=== PATIENT | male | born 1980 | race Caucasian/White ===

== ENCOUNTER 2018-07-28 16:13 | Emergency (ER) | payer BC ==
[~2018-07-28] VITALS: Ht 180.3 cm; Wt 154.2 kg
[2018-07-28 16:14] VITALS: BP 131/72
[2018-07-28] MEDS ORDERED: VENTOLIN HFA18 GM INH (16:25)
[2018-07-28] MEDS ORDERED: MORPHINE SULFATE 10 MG/ML VIAL. IM ONE (16:30)
[2018-07-28] MEDS ORDERED: KETOROLAC 60 MG/2 ML INJ. IM ONE (16:30)
[2018-07-28] MEDS ORDERED: DEXAMETHASONE SOD PHOS 20 MG/5 ML VIAL. IM ONE (16:30)
[2018-07-28] MEDS ORDERED: diazePAM 5 MG TABLET PO ONE (16:30)
--- NOTE | 2018-07-28 16:36 | PHYS DOC ---
Adult General Chief Complaint Chief Complaint: BACK PAIN - NO INJURY HPI HPI Patient is a 38 year old male with no significant history other than morbidly obesity who presents today complaining of 10 out of 10 left low back pain radiating to the left lower extremity. Patient states the pain has been going on since Sunday. He states he was seen at [facility] emergency room on Sunday, he states they did x-rays which were negative. He states the pain has continued since then. Patient denies any injury. Denies any loss of bowel bladder function. Denies any generalized weakness. Review of Systems Review of Systems Constitutional: Denies fever or chills [] GI: Denies abdominal pain, nausea, vomiting, bloody stools or diarrhea [] : Denies dysuria or hematuria [] Musculoskeletal: Reports back pain and left lower rib radiating to the left lower extremity Integument: Denies rash or skin lesions [] Neurologic: Denies headache, focal weakness or sensory changes [] All other systems were reviewed and found to be within normal limits, except as documented in this note. Current Medications Current Medications Current Medications Medications (Trade) Dose Ordered Sig/[facility] Start Time Stop Time Status Last Admin Dose Admin Dexamethasone Sodium Phosphate (Decadron) 10 mg 1X ONCE 07/28/18 16:30 07/28/18 16:31 DC 07/28/18 16:49 10 MG Diazepam (Valium) 5 mg 1X ONCE 07/28/18 16:30 07/28/18 16:31 DC 07/28/18 16:49 5 MG Ketorolac Tromethamine (Toradol Im) 60 mg 1X ONCE 07/28/18 16:30 07/28/18 16:31 DC 07/28/18 16:46 60 MG Morphine Sulfate (Morphine Sulfate) 5 mg 1X ONCE 07/28/18 16:30 07/28/18 16:31 DC 07/28/18 16:47 5 MG Allergies Allergies Allergies Coded Allergies Type Severity Reaction Last Updated Verified cephalexin Allergy Intermediate Rash 07/28/18 Yes Physical Exam Physical Exam Constitutional: Well developed, well nourished, no acute distress, non-toxic appearance. [] Abdomen: Bowel sounds normal, soft, no tenderness, no masses, no pulsatile masses. [] Skin: Warm, dry, no erythema, no rash. [] Back: Morbidly obese patient. Diffuse paraspinal muscle tenderness the left lumbar spine worse on the left SI joint, no midline lumbar spine tenderness, no CVA tenderness. Positive left leg straight raises to the left lower extremity at approximately 30 Extremities: No tenderness, no cyanosis, no clubbing, ROM intact, no edema. [] Neurologic: Alert and oriented X 3, normal motor function, normal sensory function, no focal deficits noted. [] Psychologic: Affect normal, judgement normal, mood normal. [] Current Patient Data Vital Signs Vital Signs Date Time Temp Pulse Resp B/P (MAP) Pulse Ox O2 Delivery O2 Flow Rate FiO2 07/28/18 16:47 20 07/28/18 16:14 98.3 63 131/72 (91) 97 Room Air 98.3 EKG EKG [] Radiology/Procedures Radiology/Procedures [] Course & Med Decision Making Course & Med Decision Making Pertinent Labs and Imaging studies reviewed. (See chart for details) This is a 38-year-old male obese patient presenting to the ED today with left low back pain radiating to the left lower extremity consistent with sciatica. Patient is already on hydrocodone as needed for his pain. He has a prescription for Medrol Dosepak, he states his been taking the medications with no relief. Patient was given pain medicine in the emergency room. Gave patient a prescription for Valium and increased his hydrocodone dose. Encouraged him to continue taking the Medrol Dosepak and given prescription for diclofenac. Recommended he follows up with her primary care doctor. Weight loss also recommended. Dragon Disclaimer Dragon Disclaimer This electronic medical record was generated, in whole or in part, using a voice recognition dictation system. Departure Departure Impression: Primary Impression: Low back pain Additional Impression: Sciatica Disposition: 01 HOME, SELF-CARE Condition: STABLE Patient Instructions: Back Pain, Adult, Sciatica with Rehab-SportsMed Additional Instructions: You were evaluated in the emergency room for back pain with sciatica. We increased your hydrocodone dose. We also gave you a prescription for Valium and diclofenac. Take the medications as prescribed. Continue taking the Medrol Dosepak. Please follow-up with the primary care doctor as soon as you can. Consider weight loss. Scripts Diclofenac Sodium (VOLTAREN) 100 Gm Gel..gram. 1 GM TP QID, #100 GM 2 Refills Prov: JERRYVIVIAN SCADA ENGINEER 07/28/18 Diclofenac Sodium (DICLOFENAC SODIUM) 50 Mg Tablet. 1 TAB PO BID, #30 TAB 0 Refills Prov: VIVIAN EDWARDS APRN 07/28/18 Diazepam (VALIUM) 5 Mg Tablet 5 MG PO TID, #15 TAB Prov: VIVIAN EDWARDS APRN 07/28/18 Hydrocodone Bit/Acetaminophen (HYDROCODONE-APAP 7.5-325 ) 1 Each Tablet 1 TAB PO PRN Q6HRS PRN for PAIN, #12 TAB 0 Refills Prov: VIVIAN EDWARDS APRN 07/28/18 Problem Qualifiers Primary Impression: Low back pain Chronicity: acute Back pain laterality: left Sciatica presence: with sciatica Sciatica laterality: sciatica of left side Qualified Codes: M54.42 - Lumbago with sciatica, left side Additional Impression: Sciatica Laterality: left Qualified Codes: M54.32 - Sciatica, left side VIVIAN EDWARDS APRN Jul 28, 2018 16:36
[2018-07-28] MEDS ORDERED: HYDR-2762 PO (16:48)
[2018-07-28] MEDS ORDERED: DIAZ5TAB PO (16:48)
[2018-07-28] MEDS ORDERED: DICL100G18 TP (17:36)
[2018-07-28] MEDS ORDERED: DICL50TA4 PO (17:36)
== END 2018-07-28 17:42 | disposition home or self-care (01) ==
LOC: ER 16:13
DX: M54.42 Lumbago with sciatica, left side (principal); E66.01 Morbid (severe) obesity due to excess calories; Z68.42 Body mass index [BMI] 45.0-49.9, adult; Z88.1 Allergy status to other antibiotic agents
CPT/HCPCS: 96372; 99284; J1100; J1885; J2270

== ENCOUNTER 2018-07-30 13:23 | Emergency (ER) | payer BC ==
[~2018-07-30] VITALS: Ht 180.3 cm; Wt 154.2 kg
[~2018-07-30 13:23] MED LIST: DIAZ5TAB PO; DICL100G18 TP; DICL50TA4 PO; HYDR-2762 PO; VENTOLIN HFA18 GM INH
[2018-07-30 15:11] VITALS: BP 140/91
--- NOTE | 2018-07-30 15:34 | PHYS DOC ---
Past Medical History Past Medical History: Asthma Past Surgical History: No Surgical History Alcohol Use: Rarely Drug Use: None Adult General Chief Complaint Chief Complaint: LOWER EXT PAIN HPI HPI Patient is a 38 year old male with a history of obesity presents to the ED complaining of left low back pain radiating to left lower extremity 4 days ago. Patient states on Sunday he slept on the couch because he was sick and when he woke up on , he had pain going from his left lower back down his left leg. Describes the pain as sharp. Rates the pain as 10 out of 10. States he has been to 3 or 4 different emergency rooms and was told to come here by his PCP, Dr. Quijano. Patient states he has had negative x-rays of back, hip, and knee. Denies chest pain, shortness of breath, abdominal pain, bowel/bladder changes, saddle anesthesia, injury, weakness, dizziness, fever or inability to walk. Review of Systems Review of Systems Constitutional: Denies fever or chills [] Eyes: Denies change in visual acuity, redness, or eye pain [] HENT: Denies nasal congestion or sore throat [] Respiratory: Denies cough or shortness of breath [] Cardiovascular: No additional information not addressed in HPI [] GI: Denies abdominal pain, nausea, vomiting, bloody stools or diarrhea [] : Denies dysuria or hematuria [] Musculoskeletal: Complains of left leg pain. Denies back pain or joint pain [] Integument: Denies rash or skin lesions [] Neurologic: Denies headache, focal weakness or sensory changes [] All other systems were reviewed and found to be within normal limits, except as documented in this note. Allergies Allergies Allergies Coded Allergies Type Severity Reaction Last Updated Verified cephalexin Allergy Intermediate Rash 07/28/18 Yes Physical Exam Physical Exam Constitutional: Well developed, well nourished, no acute distress, non-toxic appearance. [] HENT: Normocephalic, atraumatic Skin: Warm, dry, no erythema, no rash. [] Back: No tenderness, no CVA tenderness. [] Extremities: No bony tenderness, Pain radiates down left leg in sciatic nerve distribution. positive straight leg raise. no cyanosis, no clubbing, ROM intact , no edema. [] Neurologic: Alert and oriented X 3, normal motor function, normal sensory function, no focal deficits noted. [] Psychologic: Affect normal, judgement normal, mood normal. [] Current Patient Data Vital Signs Vital Signs Date Time Temp Pulse Resp B/P (MAP) Pulse Ox O2 Delivery O2 Flow Rate FiO2 07/30/18 15:11 98.2 94 18 140/91 (107) 95 Room Air 98.2 EKG EKG [] Radiology/Procedures Radiology/Procedures [] Course & Med Decision Making Course & Med Decision Making Pertinent Labs and Imaging studies reviewed. (See chart for details) []Discussed with patient that we do not complete outpatient MRI's. No bony tenderness, injury, bowel/bladder changes or saddle anesthesia. Patient able to ambulate without assistance. Discussed follow-up with PCP for outpatient MRI. Patients pain controlled by medications he is taking outpatient. Had registration come in and talk with patient regarding insurance questions. Discussed the importance of follow-up and reasons to return to the ED. Patient understands and agrees with plan. Dragon Disclaimer Dragon Disclaimer This electronic medical record was generated, in whole or in part, using a voice recognition dictation system. Departure Departure Impression: Primary Impression: Sciatica Disposition: HOME, SELF-CARE Condition: STABLE Referrals: MARCUS QUIJANO PA-C (PCP) Patient Instructions: Sciatica AL CULVER Jul 30, 2018 15:34
== END 2018-07-30 15:52 | disposition home or self-care (01) ==
LOC: ER 13:23
DX: M54.42 Lumbago with sciatica, left side (principal); J45.909 Unspecified asthma, uncomplicated; E66.01 Morbid (severe) obesity due to excess calories; Z68.42 Body mass index [BMI] 45.0-49.9, adult; Z88.1 Allergy status to other antibiotic agents
CPT/HCPCS: 99281

== ENCOUNTER → 2018-07-31 | Outpatient (CLI) | payer BC ==
[2018-07-30 15:11] VITALS: BP 140/91
--- NOTE | 2018-07-31 13:40 | RAD ---
MRI Lumbar Spine without contrast History: Acute low back pain for one month, left-sided sciatica for 4 days Technique: Multiplanar, multi sequential noncontrast MR imaging was performed of the lumbar spine. Contrast: None Comparison: None Findings: There is mild motion. Most inferior fully formed intervertebral disc space is considered L5-S1. Lumbar vertebral body stature and AP alignment are maintained. There is relative straightening of the lumbar spine. There is mild degenerative disc disease L2-3 and L3-4, mild disc desiccation L5-S1 and L1-2. There is posterior annular tear L5-S1, anterior annular tears at L3-4 and L2-3. There is mild edema of the anterior, inferior corners of L3 and L2 to lesser degree of L1 probably reactive/degenerative in etiology. There is a hemangioma of the superior L3 vertebral body extending to the endplate. Conus terminates at the mid aspect of L2. There is mild lumbar levoscoliosis. L1-L2: Spinal canal and neural foramina are adequate. L2-L3: Spinal canal and neural foramina are adequate. L3-L4: Spinal canal and neural foramina are adequate. There is mild facet degenerative change. L4-L5: Spinal canal is adequate. There is minimal disc osteophyte complex in the inferior left neural foramen, minimal narrowing of the left neural foramen. Right neural foramen is adequate. L5-S1: There is minimal disc osteophyte complex in the inferior left neural foramen, very mild narrowing. Right neural foramen and spinal canal are adequate. Impression: 1. There is no lumbar spinal stenosis. There is mild degenerative disc disease greatest L2-3 and L3-4. There is minimal edema of the anterior, inferior corners of L1, L2, L3 likely reactive/degenerative in etiology. There is minimal narrowing of the left L4-5 and L5-S1 neural foramina by minimal disc osteophyte complexes. Electronically signed by: Remington Bradley MD (07/31/2018 1:36 PM) [id number]
== END | disposition home or self-care (01) ==
LOC: MRI 12:19
PROVIDERS: ATTEND Family Medicine
DX: M51.36 Other intervertebral disc degeneration, lumbar region (principal); M51.37 Other intervertebral disc degeneration, lumbosacral region; M48.061 Spinal stenosis, lumbar region without neurogenic claudication; M48.07 Spinal stenosis, lumbosacral region; M25.78 Osteophyte, vertebrae; D18.09 Hemangioma of other sites; R60.0 Localized edema
CPT/HCPCS: 72148

== ENCOUNTER → 2018-08-14 | Outpatient (CLI) | payer BC ==
[2018-07-30 15:11] VITALS: BP 140/91
--- NOTE | 2018-08-14 15:34 | KCIC ---
MRI Cervical Spine Without Contrast History: Unable to bear weight in recent weeks, herniation, severe left knee pain Technique: Multiplanar, multi sequential noncontrast MR imaging was performed of the cervical spine. Comparison: None Findings: Cervical cord caliber is within normal limits without focal signal abnormality. There is no significant abnormality cervical medullary junction. Cervical vertebral body stature and AP alignment are within normal limits. There is straightening of cervical spine. There is mild disc desiccation C2-3 through C5-C6, very mild narrowing of the C3-4 intervertebral disc space. There is no significant marrow edema. C2-C3: Spinal canal and neural foramina are adequate. C3-C4: There is minimal disc osteophyte complex eccentric to the lateral recesses bilaterally, superimposed shallow protrusion eccentric to the far left lateral recess measuring about 3 to 4 mm AP by 3 to 4 mm CC by 3 to 4 mm transverse. There is mild indentation upon the ventral thecal sac greater in the far left lateral recess, [id number] narrowing of the far left lateral recess. Neural foramina are overall adequate. C4-C5: Spinal canal and neural foramina are adequate. C5-C6: Neural foramina and spinal canal are adequate. C6-C7: Spinal canal and right neural foramen are adequate, mild narrowing of the left neural foramen. C7-T1: Spinal canal and neural foramina are adequate. Impression: 1. There is a small protrusion eccentric to the far left lateral recess C3-4 superimposed on disc osteophyte complex with [id number] narrowing of the far left lateral recess. There is multilevel mild disc desiccation, mild narrowing of the C3-4 intervertebral disc space. There is mild narrowing of the C6-7 neural foramen. Electronically signed by: Remington Bradley MD (08/14/2018 3:30 PM) [id number]
--- NOTE | 2018-08-14 16:01 | KCIC ---
MRI Thoracic Spine without contrast History: Severe acute left knee pain, unable to bear weight in recent weeks Technique: Multiplanar, multi sequential noncontrast MR imaging was performed of the thoracic spine. Contrast: None Comparison: None Findings: Thoracic cord caliber is within normal limits without convincing focal signal abnormality allowing for mild artifact. There is some motion degradation. There is no significant marrow edema. There is no significant thoracic spinal stenosis at any level. There is no significant focal posterior disc abnormality of the thoracic spine. There is minimal disc desiccation T5-T6 and T6-T7. Thoracic neural foramina are not significantly narrowed. There is very mild mid thoracic dextroscoliosis. Poorly evaluated, there may be infiltrate posteriorly of the visualized right hemithorax. Impression: 1. There is no significant thoracic spinal stenosis or neural foramina compromise. 2. Poorly evaluated, there may be infiltrate of the posterior right hemithorax. Electronically signed by: Remington Bradley MD (08/14/2018 3:58 PM) [id number]
== END | disposition home or self-care (01) ==
LOC: KCIC MRI 13:37
PROVIDERS: ATTEND Orthopaedic Surgery Orthopaedic Surgery of the Spine
DX: M25.78 Osteophyte, vertebrae (principal); M54.6 Pain in thoracic spine; M48.02 Spinal stenosis, cervical region; M25.562 Pain in left knee
CPT/HCPCS: 72141; 72146

== ENCOUNTER → 2018-08-15 | Outpatient (CLI) | payer BC ==
[2018-07-30 15:11] VITALS: BP 140/91
--- NOTE | 2018-08-15 15:38 | KCIC ---
MRI left knee without contrast dated 08/15/2018. No comparison available. CLINICAL INDICATION: Knee pain. Difficulty weightbearing. No known injury. Technique: Routine multiplanar multisequence imaging performed. . Findings: Homogeneous signal throughout the visualized bone marrow. No marrow edema. Mild thinning and surface irregularity of the articular cartilage throughout. Near full-thickness cartilage loss at the lateral patellar facet and lateral femoral trochlea. No significant joint effusion. No intra-articular loose body. Tiny popliteal cyst. Anterior cruciate and posterior cruciate ligaments intact. Medial and lateral collateral complexes are intact. Iliotibial band, popliteus tendon and pes anserine complex within normal limits. Quadriceps and patellar tendon are intact. No abnormality of the medial or lateral retinaculum. Menisci are not well evaluated due to motion artifact on the PD sequences. There is mild blunted morphology of the medial meniscal body and posterior horn. Lateral meniscus is grossly normal in morphology and signal. IMPRESSION: 1. 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 There is near full-thickness cartilage loss at the anterior compartment. 2. Menisci are not well evaluated due to motion artifact. There is possible early degenerative free edge radial tearing of the posterior horn and body medial meniscus. 3. Intact cruciate and collateral ligaments. Electronically signed by: Segundo Spence MD (08/15/2018 3:35 PM) [email or web address]
== END | disposition home or self-care (01) ==
LOC: KCIC MRI 13:37
PROVIDERS: ATTEND Physician Assistant Medical
DX: M17.12 Unilateral primary osteoarthritis, left knee (principal)
CPT/HCPCS: 73721